=== PATIENT | male | born 1995 | race Hispanic/Latino ===

== ENCOUNTER 2021-12-11 03:01 | Emergency (ER) | payer OTHER ==
[~2021-12-11] VITALS: Ht 157.5 cm; Wt 78.2 kg
[2021-12-11] MEDS ORDERED: IBUPROFEN 600MG TAB PO ONE (04:25)
[2021-12-11 06:00] VITALS: BP 131/62
== END 2021-12-11 06:20 | disposition home or self-care (01) ==
LOC: M ED 03:01
DX: S20.211A Contusion of right front wall of thorax, initial encounter (principal); W22.8XXA Striking against or struck by other objects, initial encounter; Y92.89 Other specified places as the place of occurrence of the external cause; Y99.0 Civilian activity done for income or pay; F17.220 Nicotine dependence, chewing tobacco, uncomplicated